=== PATIENT | female | born 1940 | race Caucasian/White ===

== ENCOUNTER 2021-07-23 09:30 | Emergency (ER) | payer MEDICARE, OTHER ==
[~2021-07-23] VITALS: Ht 157.5 cm; Wt 50.9 kg
[2021-07-23] MEDS ORDERED: SIMV20TA22 PO (10:06)
[2021-07-23] MEDS ORDERED: LISI20TA33 PO (10:06)
[2021-07-23] MEDS ORDERED: BACITRACIN OINTMENT 30GM TUBE TOP STA (12:38)
[2021-07-23] MEDS ORDERED: DOXYCYCLINE HYCLATE 100MG TABLET PO ONE (12:40)
[2021-07-23] MEDS ORDERED: BACI500O21 TOP (13:38)
[2021-07-23] MEDS ORDERED: DOXY1CAP62 PO (13:38)
[2021-07-23 13:41] VITALS: BP 137/86
== END 2021-07-23 13:54 | disposition home or self-care (01) ==
LOC: M ED 09:30
DX: T21.22XA Burn of second degree of abdominal wall, initial encounter (principal); T31.0 Burns involving less than 10% of body surface; X10.0XXA Contact with hot drinks, initial encounter; I10 Essential (primary) hypertension; E78.5 Hyperlipidemia, unspecified; F02.80 Dementia in other diseases classified elsewhere, unspecified severity, without behavioral disturbance, psychotic disturbance, mood disturbance, and anxiety; Z79.899 Other long term (current) drug therapy